=== PATIENT | male | born 1985 | race Two or more races ===

== ENCOUNTER 2024-10-18 07:58 | Emergency (ER) | payer OTHER, MEDICAID ==
[~2024-10-18] VITALS: Ht 188 cm; Wt 58.1 kg
[2024-10-18] MEDS ORDERED: HYDR500C2 PO (08:17)
[2024-10-18] MEDS ORDERED: SENN8.6T19 PO (08:17)
[2024-10-18] MEDS ORDERED: FOLI1TAB27 PO (08:17)
[2024-10-18] MEDS ORDERED: FLUT15.87 (08:17)
[2024-10-18] MEDS ORDERED: HYDROMORPHONE 1 MG/1 ML DISP.SYRIN IV ONE (08:45)
[2024-10-18] MEDS ORDERED: diphenhydrAMINE 50 MG/1 ML VIAL IV ONE (08:45)
[2024-10-18] MEDS ORDERED: IV NORMAL SALINE 1000 ML BAG IV ONE (08:45)
[2024-10-18 08:56] LABS: PLATELET COUNT (AUTO) 270 K/uL (152-348); RED BLOOD CELL COUNT(AUTO) 2.52 MIL/uL (4.06-5.63); RED CELL DISTRIBUTION WIDTH 21.3 % (12.1-16.2); WHITE BLOOD COUNT (AUTO) 6.1 K/uL (3.6-10.2)
[2024-10-18 09:08] LABS: CREATININE 0.5 mg/dL (0.6-1.3); SODIUM SERUM 140 mmol/L (136-145); UREA NITROGEN, BLOOD 7 mg/dL (7-18)
[2024-10-18 09:25] LABS: ASPARTATE AMINOTRANSFERASE 63 U/L (15-37); TOTAL PROTEIN, SERUM 7.2 g/dL (6.4-8.2)
[2024-10-18] MEDS ORDERED: diphenhydrAMINE 50 MG/1 ML VIAL ONE ×3 (09:25→15:05)
[2024-10-18] MEDS ORDERED: HYDROMORPHONE 2 MG/1 ML DISP.SYRIN ONE (09:25)
[2024-10-18] MEDS: diphenhydrAMINE 50 MG/1 ML VIAL IM ONE (09:29)
[2024-10-18] MEDS: HYDROMORPHONE 1 MG/1 ML DISP.SYRIN IM ONE (09:29)
[2024-10-18] MEDS: IV NORMAL SALINE 1000 ML BAG IV ONE (11:02)
[2024-10-18] MEDS ORDERED: HYDROMORPHONE 1 MG/1 ML DISP.SYRIN ONE ×4 (11:48→20:01)
[2024-10-18] MEDS: diphenhydrAMINE 50 MG/1 ML VIAL IV ONE ×2 (11:52→15:14)
[2024-10-18] MEDS: HYDROMORPHONE 1 MG/1 ML DISP.SYRIN IV ONE ×4 (11:52→20:05)
[2024-10-18 20:52] VITALS: O2SAT 97
== END 2024-10-18 21:10 | disposition short-term general hospital (02) ==
LOC: ER 08:04
DX: D57.00 Hb-SS disease with crisis, unspecified (principal); F11.20 Opioid dependence, uncomplicated; F20.9 Schizophrenia, unspecified; F31.9 Bipolar disorder, unspecified; J45.909 Unspecified asthma, uncomplicated; M17.11 Unilateral primary osteoarthritis, right knee; Z79.64 Long term (current) use of myelosuppressive agent; Z88.7 Allergy status to serum and vaccine; Z88.8 Allergy status to other drugs, medicaments and biological substances
CPT/HCPCS: 99285; 96374; 96361; 71045; 96375; 80076; 80048; 85025; 85044; 85730; 86850; 86900; 86901; 84484; 36415; 36410; 93005; 96376; 96372; J1200 ×3; J1171 ×5; J7040; 70030-TC; A4606; A4663